=== PATIENT | female | born 1980 ===

== ENCOUNTER 2024-07-19 09:45 | Inpatient (IN) | payer OTHER ==
[~2024-07-19] VITALS: Ht 152.4 cm; Wt 54.4 kg
[2024-07-19 10:51] VITALS: BP 110/70
[2024-07-19 10:54] VITALS: BP 112/78
[2024-07-19 11:06] LABS: HEMATOCRIT 40.4 % (36.0-45.00); HEMOGLOBIN 13.7 g/dL (12.0-15.00); MEAN CELL VOLUME 89.6 fL (80.00-100.00); MEAN CORPUSCULAR HEMOGLOBIN 30.3 pg (27.00-32.0); MEAN CORPUSCULAR HGB CONC 33.8 g/dl (32.0-36.0); PLATELET COUNT 265 K/uL (150-450); RED BLOOD COUNT 4.51 M/uL (4.00-6.00); RED CELL DISTRIBUTION WIDTH 12.6 % (11.5-14.5)
[2024-07-19 11:34] LABS: INR 0.97; PARTIAL THROMBOPLASTIN TIME 28.8 SECONDS (22.0-34.0); PROTHROMBIN TIME 10.6 SECONDS (9.0-11.5)
[2024-07-19 11:48] LABS: ALBUMIN 3.9 gm/dL (3.4-5.0); ALKALINE PHOSPHATASE 73 U/L (50-136); ALT/SGPT 32 U/L (12-78); ANION GAP 7 (10.0-20.0); AST/SGOT 23 U/L (15-37); BILIRUBIN TOTAL 0.35 mg/dL (0.3-1.2); BLOOD UREA NITROGEN 13 mg/dL (7-18); BUN CREA RATIO 20 (7.0-25.0); CALCIUM 9.3 mg/dL (8.5-10.1); CARBON DIOXIDE 30 mEq/L (21-32); CHLORIDE 106 mmol/L (98-107); CREATININE SERUM 0.66 mg/dL (0.55-1.02); GFR 96.85; GLOBULINA 3.7 G/DL (2.4-3.5); GLUCOSE FASTING 89 mg/dL (65-100); OSMOLALITY SERUM 277 MOSM/KG (275-295); SODIUM 139 mmol/L (136-145); TOTAL PROTEIN 7.6 gm/dL (6.4-8.2)
[2024-07-19 11:49] LABS: HCG QUANTITATIVE < 1 mUI/mL (1-3)
[2024-07-19 12:12] LABS: RH POSITIVE
[2024-07-27] MEDS ORDERED: CEFAZOLIN SODIUM 1,000 MG VIAL IV ONE (14:30)
[2024-07-27] MEDS ORDERED: POVIDONE-IODINE 118 ML BOTT TOP ONE (14:30)
[2024-07-27] MEDS ORDERED: SUGAMMADEX SODIUM 200 MG/2 ML VIAL IV ONE (17:26)
[2024-07-27] MEDS ORDERED: PROMETHAZINE HCL 25 MG/ML AMPUL IM PRN (18:15)
[2024-07-27] MEDS ORDERED: RINGERS SOLUTION,LACTATED 1,000 ML IV SCH (18:15)
[2024-07-27] MEDS ORDERED: ACETAMINOPHEN 500 MG GEL..CAP PO SCH (18:17)
[2024-07-27] MEDS ORDERED: KETOROLAC TROMETHAMINE 30 MG VIAL IV SCH (18:17)
[2024-07-27] MEDS ORDERED: GABAPENTIN 300 MG CAPSULE PO PRN (18:30)
[2024-07-27] MEDS ORDERED: MORPHINE SULFATE 4 MG/ML VIAL IV ONE (19:35)
[2024-07-27] MEDS ORDERED: KETOROLAC TROMETHAMINE 30 MG VIAL ONE (22:02)
[2024-07-27] MEDS ORDERED: ACETAMINOPHEN 500 MG GEL..CAP PO ONE (23:44)
[2024-07-28 00:39] VITALS: BP 110/70
[2024-07-28 03:31] LABS: HEMATOCRIT 34.7 % (36.0-45.00); HEMOGLOBIN 11.6 g/dL (12.0-15.00); MEAN CELL VOLUME 89.6 fL (80.00-100.00); MEAN CORPUSCULAR HEMOGLOBIN 29.9 pg (27.00-32.0); MEAN CORPUSCULAR HGB CONC 33.4 g/dl (32.0-36.0); PLATELET COUNT 220 K/uL (150-450); RED BLOOD COUNT 3.88 M/uL (4.00-6.00); RED CELL DISTRIBUTION WIDTH 12.7 % (11.5-14.5)
[2024-07-28 08:54] VITALS: BP 111/70
== END 2024-07-28 10:25 | disposition home or self-care (01) | DRG 743 ==
LOC: SURH 07-27 07:00 → O/R 07-27 11:35 → OB/GYN 07-27 19:30
PROVIDERS: ADMIT Student in an Organized Health Care Education/Training Program; ATTEND Student in an Organized Health Care Education/Training Program
PROC: 0UT74ZZ Resection of Bilateral Fallopian Tubes, Percutaneous Endoscopic Approach (ICD-10-PCS; 2024-07-27)
PROC: 0DNW4ZZ Release Peritoneum, Percutaneous Endoscopic Approach (ICD-10-PCS; 2024-07-27)
PROC: 0DNP4ZZ Release Rectum, Percutaneous Endoscopic Approach (ICD-10-PCS; 2024-07-27)
PROC: 0DNN4ZZ Release Sigmoid Colon, Percutaneous Endoscopic Approach (ICD-10-PCS; 2024-07-27)
PROC: 8E0W4CZ Robotic Assisted Procedure of Trunk Region, Percutaneous Endoscopic Approach (ICD-10-PCS; 2024-07-27)
PROC: 0TJB8ZZ Inspection of Bladder, Via Natural or Artificial Opening Endoscopic (ICD-10-PCS; 2024-07-27)
PROC: 0UT94ZZ Resection of Uterus, Percutaneous Endoscopic Approach (ICD-10-PCS; principal; 2024-07-27 07:00)
DX: D25.9 Leiomyoma of uterus, unspecified (principal); N94.6 Dysmenorrhea, unspecified; N85.2 Hypertrophy of uterus; Z90.710 Acquired absence of both cervix and uterus
CPT/HCPCS: 58573; 44180; 58661; 52000; S2900